=== PATIENT | male | born 1940 | race Caucasian/White ===

== ENCOUNTER 2016-09-21 13:04 | Emergency (ER) | payer MEDICARE, OTHER ==
[~2016-09-21] VITALS: Ht 160 cm; Wt 91.4 kg
[2016-09-21 14:46] VITALS: BP 120/70
== END 2016-09-21 14:46 | disposition home or self-care (01) ==
LOC: ED 13:04
DX: N40.0 Benign prostatic hyperplasia without lower urinary tract symptoms (principal); R03.0 Elevated blood-pressure reading, without diagnosis of hypertension

== ENCOUNTER 2016-09-26 17:31 | Emergency (ER) | payer MEDICARE, OTHER ==
[2016-09-26 19:23] VITALS: BP 117/88
== END 2016-09-26 19:23 | disposition home or self-care (01) ==
LOC: ED 17:31
DX: T83.091A Other mechanical complication of indwelling urethral catheter, initial encounter (principal); R30.0 Dysuria